=== PATIENT | female | born 1960 | race Caucasian/White ===

== ENCOUNTER 2021-04-06 23:23 | Inpatient (IN) | payer BC, SELFPAY ==
[~2021-04-06] VITALS: Ht 170.2 cm; Wt 81.6 kg
[2021-04-06 23:36] VITALS: BP 78/46
--- NOTE | 2021-04-06 23:36 | NUR ---
TO CHAIR B VIA [facility], BROUGHT IN BY AMBULANCE WITH C/O GEN WEAKNESS AND LOW BP
--- NOTE | 2021-04-06 23:47 | NUR ---
PT APPEARS TO BE RESTING W EYES CLOSED IN SUPINE POSITION. BED LOCKED IN LOWEST POSITION W X2 SIDERAILS UP FOR PT SAFEYT. PT CONNECTED TO MONITOR W VSS. BREATHING EVEN AND UNLABORED. NAD NOTED, WILL CONTINUE TO MONITOR.
--- NOTE | 2021-04-07 00:06 | NUR ---
Dr. Mcadams examining patient.
[2021-04-07] MEDS ORDERED: NACL 0.9% 1,000 ML IV ONE ×3 (00:40→04:10)
--- NOTE | 2021-04-07 00:59 | NUR ---
PT RETURN FROM RADIOLOGY
[2021-04-07 01:54] LABS: BASOPHILS % (AUTO) 0.1 % (0.0-2.0); EOSINOPHILS # (AUTO) 0.1 K/uL (0-0.4); EOSINOPHILS % (AUTO) 0.5 % (0.0-4.0); HEMATOCRIT 36.5 % (36-48); HEMOGLOBIN 11.8 g/dL (12.0-16.0); LYMPHOCYTES # (AUTO) 1.3 K/uL (2.5-16.5); MEAN CORPUSCULAR HEMOGLOBIN 27 pg (27-31); MEAN CORPUSCULAR HGB CONC 33 g/dL (33-37); MEAN CORPUSCULAR VOLUME 82.9 fL (80-94); MONOCYTES # (AUTO) 0.6 K/uL (0.8-1.0); MONOCYTES % (AUTO) 3.7 % (1.7-9.3); NEUTROPHILS # (AUTO) 14.8 K/uL (1.8-7.7); NEUTROPHILS % (AUTO) 87.7 % (42.2-75.2); PLATELET COUNT (AUTO) 305 K/uL (140-450); RED CELL DISTRIBUTION WIDTH 14.4 % (11.6-13.7); WHITE BLOOD COUNT (AUTO) 16.9 K/uL (4.8-10.8)
[2021-04-07 02:27] LABS: ALBUMIN 1.8 g/dL (3.4-5.0); ANION GAP 19.2 (8-16); CARBON DIOXIDE 19.8 mmol/L (21-32); THYROID STIMULATING HORMONE 0.91 uIU/mL (0.34-3.74); TOTAL BILIRUBIN 0.7 mg/dL (0.0-1.0)
[2021-04-07 02:35] LABS: CREATININE 6.3 mg/dL (0.6-1.3)
--- NOTE | 2021-04-07 03:40 | NUR ---
UA OBTAINED, SENT TO LAB
[2021-04-07 03:47] LABS: APPEARANCE,URINE CLOUDY (CLEAR); BILIRUBIN,URINE 1+ (NEGATIVE); BLOOD, URINE 1+ (NEGATIVE); COLOR,URINE YELLOW (YELLOW); LEUKOCYTE ESTERASE ,URINE 2+ (NEGATIVE); NITRITE, URINE NEGATIVE (NEGATIVE); PH,URINE 5.5 (5.0-9.0); UGLUCOSE TRACE (NEGATIVE)
--- NOTE | 2021-04-07 04:39 | NUR ---
Patient will be admitted to care of DR KAILA GONZALEZ. Admited to TELEMETRY. . Belongings list completed.
--- NOTE | 2021-04-07 04:40 | NUR ---
SWAB FOR VICKIE SENT TOL[facility]
[2021-04-07 04:48] LABS: RBC,URINE 0-5 /HPF (0-5); WBC,URINE TOO MANY TO COUNT /HPF (0-5)
--- NOTE | 2021-04-07 06:20 | NUR ---
PT MOVED TO ER BED 1
[2021-04-07] MEDS ORDERED: cefTRIAXone 1,000 MG VIAL ONE (06:45)
--- NOTE | 2021-04-07 07:30 | NUR ---
Received pt from Night nurse. Pt is bed, awake and using a cellphone. Pt stated that she feels better after received NS. Denies any pain. VSS.
[2021-04-07] MEDS ORDERED: MAGNESIUM OXIDE 400 MG TAB PO PRN (09:10)
[2021-04-07] MEDS ORDERED: ONDANSETRON 4 MG/2 ML VIAL IM/IVP PRN (09:10)
[2021-04-07] MEDS ORDERED: HYDROcodone/APAP 5/325 MG 1 TAB TAB PO PRN (09:10)
[2021-04-07] MEDS ORDERED: ACETAMINOPHEN 325 MG TAB PO PRN (09:10)
[2021-04-07] MEDS ORDERED: MORPHINE SULFATE 2 MG/ML SYR IVP PRN (09:10)
[2021-04-07] MEDS ORDERED: POTASSIUM CHLORIDE 10 MEQ TABER PO PRN (09:10)
[2021-04-07] MEDS ORDERED: SODIUM PHOS / POTASSIUM PHOS 1 PKT PDR PO PRN (09:10)
[2021-04-07] MEDS ORDERED: DOCUSATE SODIUM 100 MG GELCAP PO PRN (09:10)
--- NOTE | 2021-04-07 09:10 | NUR ---
Pt requeted to have breakfast. No diet order. Paged admitting for diet order.
[2021-04-07 10:22] LABS: MAGNESIUM 2.6 mg/dL (1.8-2.4)
[2021-04-07] MEDS: NACL 0.9% 1,000 ML IV SCH (12:27)
--- NOTE | 2021-04-07 13:15 | NUR ---
Lunch served. Pt stated that she wants to eat more but she cannot eat that much. 30 %
--- NOTE | 2021-04-07 14:34 | NUR ---
Asked Dr. Thomason whether pt needs 2 nd dose of Rocephine IVPB since last one given at 04 00 , Dr Thomason replied " NO ".
--- NOTE | 2021-04-07 15:51 | NUR ---
Pt is resting without distress and continues to sleep.
--- NOTE | 2021-04-07 16:30 | NUR ---
Assisted with prakash li
--- NOTE | 2021-04-07 16:53 | NUR ---
PATIENT HAS BEEN SCREENED AND CATEGORIZED MODERATE NUTRITION RISK. PATIENT WILL BE SEEN WITHIN 3-5 DAYS OF ADMISSION. / RADHA [address]PS RD
--- NOTE | 2021-04-07 19:27 | NUR ---
Report received from YIN Puckett for continuity of pt care at this time.
--- NOTE | 2021-04-07 19:46 | NUR ---
PT LAYING SUPINE IN BED W HOB ELEVATED. BED LOCKED IN LOWEST POTISION W X2 SIDERAIL UP FOR PT SAFETY. PT AWAKE REPORTS FEELING BETTER, PT DENIES ANY PAIN, DIZZYNESS OR OTHER SYMPTOMS AT THIS TIME. PT REPORTS ONGOING GEN WEAKNESS BUT IMPROVING FROM BEFORE. PT ALSO REPORTS BEING ABLE TO EAT SOME OF THE DINNER. PT HAS NS RUNNING AT 40 ML/HR TO L AC. PT REQUESTING SED COMPRESSION STOCKINGS D/T BEING IN BED FOR A LONG TIME, ADVISED PT ON DOING IN BED EXERCISES IN THE MEAN TIME. VSS. BREATHING EVEN AND UNLABORED. NAD NOTED, WILL CONTINUE TO MONITOR.
--- NOTE | 2021-04-07 20:02 | NUR ---
CONTACTED [employer]ON FORMING MACHINE ADJUSTER GABRIEL FOR SED COMPRESSION STOCKINGS AT THIS TIME.
--- NOTE | 2021-04-08 00:02 | NUR ---
PT ASSISTED TO BED TIRADO, PROVIDED W CLEAN LINENS AND PLACED IN GOWN. ALL NEEDS MET AT THIS TIME.
--- NOTE | 2021-04-08 00:11 | NUR ---
SEQUENTIAL COMPRESSION STOCKINGS APPLIED.
--- NOTE | 2021-04-08 00:32 | NUR ---
PT BP TRENDING AROUND 73/33 W OTHER VSS. PT REPORTS SHE FEELS FINE DENIES ANY PAIN, DIZZYNESS, NAUSEA OR OTHER SYMPTOMS. PT IN BED CONNECTED TO MONITOR. MADE AWARE.
--- NOTE | 2021-04-08 00:38 | NUR ---
Yazmin meléndez in ED - 04/08/21 at 0038 by TYLER NEW ORDERS RECEIVED FOR NS BOLUS OF 500ML.
--- NOTE | 2021-04-08 00:38 | NUR ---
NEW ORDERS RECEIVED FOR NS BOLUS OF 500ML. PER .
[2021-04-08] MEDS ORDERED: NACL 0.9% 500 ML IV SCH (00:40)
--- NOTE | 2021-04-08 02:03 | NUR ---
PT BP AT 85/56. MD BRIGHT MADE AWARE. PT DENIES ANY SYMPTOMS AT THIS TIME.
--- NOTE | 2021-04-08 02:06 | NUR ---
NEW ORDER FROM MD BRIGHT FOR 1L BOLUS RECIVED.
[2021-04-08] MEDS ORDERED: cefTRIAXone 1,000 MG VIAL ONE (02:40)
[2021-04-08] MEDS ORDERED: NACL 0.9% 1,000 ML IV SCH (02:50)
--- NOTE | 2021-04-08 03:08 | NUR ---
Pt report given to ROSAURA CORDOBA. Transfer of care at this time.
--- NOTE | 2021-04-08 03:42 | NUR ---
PT GIVEN BEDPAN. 500 ML OUPUT
--- NOTE | 2021-04-08 05:00 | NUR ---
pt asked to home health caregiver her mints in her bag.
[2021-04-08] MEDS: PANTOPRAZOLE 40 MG TABEC PO SCH ×2 (05:09→09:40)
[2021-04-08] MEDS: NACL 0.9% 1,000 ML IV SCH ×2 (05:12→15:58)
--- NOTE | 2021-04-08 07:45 | NUR ---
Pt is AOX4, able to make all needs known. Resp even and unlabored on RA. Denies pain at this time. Bedpan given with 300cc of clear yellow urine obtained at this time. PT is Afib controlled at the monitor. VSS. Assisted to reposition and all safety measures in place . SR up for safety. Call light in reach.
[2021-04-08 09:13] LABS: HEMATOCRIT 35.8 % (36-48); HEMOGLOBIN 11.8 g/dL (12.0-16.0); MEAN CORPUSCULAR HEMOGLOBIN 27 pg (27-31); MEAN CORPUSCULAR HGB CONC 33 g/dL (33-37); MEAN CORPUSCULAR VOLUME 83.2 fL (80-94); PLATELET COUNT (AUTO) 313 K/uL (140-450); RED BLOOD CELL COUNT(AUTO) 4.31 MIL/uL (4.20-5.40); RED CELL DISTRIBUTION WIDTH 14.3 % (11.6-13.7); WHITE BLOOD COUNT (AUTO) 14.3 K/uL (4.8-10.8)
[2021-04-08 09:44] LABS: ANION GAP 19.1 (8-16); CARBON DIOXIDE 17.7 mmol/L (21-32); POTASSIUM 3.8 mmol/L (3.5-5.1)
[2021-04-08 09:46] LABS: CREATININE 5.6 mg/dL (0.6-1.3)
[2021-04-08 10:00] LABS: EOSINOPHILS % (MANUAL) 2 % (0-4); LYMPHOCYTES % (MANUAL) 5 % (20-46); MONOCYTES % (MANUAL) 3 % (5-12)
--- NOTE | 2021-04-08 10:11 | NUR ---
Pt is sleeping comfortably in bed at this time. VSS
--- NOTE | 2021-04-08 11:56 | NUR ---
Pt noted with B/P 64/28, asymptomatic at this time. Dr Kemp made aware, new orders to be put in.
--- NOTE | 2021-04-08 12:12 | NUR ---
US at bedside to perform procedure.
--- NOTE | 2021-04-08 13:20 | NUR ---
Dr Kemp at bedside to assess pt. Pt given full opportunity to ask all questions at this time.
[2021-04-08] MEDS: NOREPINEPHRINE 4 MG in DEXTROSE 5% 250 ML IV PRN ×2 (13:26→21:35)
--- NOTE | 2021-04-08 14:00 | NUR ---
Dr Mobley at bedside to consul with patient
--- NOTE | 2021-04-08 16:39 | NUR ---
Patient is sleeping comfortably in bed. Vital Signs within normal limits. Respirations even and unlabored. Call light in reach. IV remains patent and intact.
--- NOTE | 2021-04-08 17:58 | NUR ---
Pt assisted to use bedpan at this time. 300 cc clear yellow fluid obtained.
--- NOTE | 2021-04-08 19:32 | NUR ---
Pt report given to Ermias ESQUEDA. Transfer of care at this time.
--- NOTE | 2021-04-08 21:25 | NUR ---
PATIENT STABLE VITALS SIGNS IN NORMAL LIMITS BP 99/57 R 18 T97.8 R 18 SPO2 99 PATIENT DENIES ANY PAIN STAY IF I NEED THE BED TIRADO I BALDEMAR PRESS THE CALLBOTHOM //Maikel RN
[2021-04-08] MEDS ORDERED: NOREPINEPHRINE 4 MG/4 ML VIAL IV ONE (21:33)
[2021-04-09] MEDS: NACL 0.9% 1,000 ML IV SCH ×3 (01:11→21:26)
[2021-04-09] MEDS ORDERED: cefTRIAXone 1,000 MG VIAL ONE (01:14)
--- NOTE | 2021-04-09 01:50 | NUR ---
PATIENT STABLE VITALS SIGNS IN NORMAL LIMITS SR ON MONITOR 86 NO COMPLAINING OG PAIN //DiCaprio RN
--- NOTE | 2021-04-09 03:08 | NUR ---
PATIENT SLEEPING AT THIS TIME VITALS SIGNS IN NORMAL LIMITS SR 86 ON MONITOR //DiCaprio RN
--- NOTE | 2021-04-09 05:22 | NUR ---
Note rika in EDM - 04/09/21 at 0536 by COCO Patient discharged with v/s stable. Written and verbal after care instructions given and explained. Patient alert, oriented and verbalized understanding of instructions. Ambulatory with steady gait. All questions addressed prior to discharge. ID band removed. Patient advised to follow up with PMD. Rx of KEFLEX. DIFLUCAN, BACTRIM, IBRUPROFEN given.Opportunity to ask questions provided and answered.
--- NOTE | 2021-04-09 05:38 | NUR ---
PATIENT STABLE AWAKED RUDI IN HER COMPUTER VITALS SIGNS IN NORMAL LIMITS SR 83 ON THE MONITOR ASKED FOR AN APPLE JUICE //DiCaprio RN
--- NOTE | 2021-04-09 06:52 | NUR ---
PATIENT STABLE VITALS SIGNS IN NORMAL LIMITS NOT COMPLAINING OF PAIN SR 86 ON MONITOR //DiCaprio RN
--- NOTE | 2021-04-09 07:31 | NUR ---
Report and continuation of care received from YIN Pink.
--- NOTE | 2021-04-09 07:35 | NUR ---
Received patient on Levophed @ 2mcg/min, NS @ 100 mL/clear to L wrist. BP 93/57 (70) HR 82, 98% on room air; RR 23. library monitor in place. Bed locked in lowest position, side rails x 1, call light in reach.
--- NOTE | 2021-04-09 07:45 | NUR ---
Arie (PICC line RN) spoke and states to contact n ephrologist to get cleared for PICC.
--- NOTE | 2021-04-09 07:53 | NUR ---
Spoke with Dr. Ahn who states pt cleared for PICC line.
--- NOTE | 2021-04-09 07:58 | NUR ---
Patient assisted with bedpan; 120mL clear/yellow urine discarded and new chucks applied. All pt needs met.
--- NOTE | 2021-04-09 08:05 | NUR ---
Patient states she wants to speak with family prior to making decision on PICC line insertion.
--- NOTE | 2021-04-09 08:10 | NUR ---
Breakfast mealtray at bedside
[2021-04-09 08:12] LABS: BASOPHILS % (AUTO) 0.1 % (0.0-2.0); EOSINOPHILS # (AUTO) 0.2 K/uL (0-0.4); EOSINOPHILS % (AUTO) 1.9 % (0.0-4.0); HEMATOCRIT 34.5 % (36-48); HEMOGLOBIN 11.5 g/dL (12.0-16.0); LYMPHOCYTES # (AUTO) 0.6 K/uL (2.5-16.5); LYMPHOCYTES % (AUTO) 4.3 % (20.5-51.1); MEAN CORPUSCULAR HEMOGLOBIN 28 pg (27-31); MEAN CORPUSCULAR HGB CONC 33 g/dL (33-37); MEAN CORPUSCULAR VOLUME 83.2 fL (80-94); MONOCYTES # (AUTO) 0.3 K/uL (0.8-1.0); MONOCYTES % (AUTO) 2.2 % (1.7-9.3); NEUTROPHILS # (AUTO) 12.1 K/uL (1.8-7.7); NEUTROPHILS % (AUTO) 91.5 % (42.2-75.2); PLATELET COUNT (AUTO) 344 K/uL (140-450); RED BLOOD CELL COUNT(AUTO) 4.14 MIL/uL (4.20-5.40); RED CELL DISTRIBUTION WIDTH 14.4 % (11.6-13.7); WHITE BLOOD COUNT (AUTO) 13.2 K/uL (4.8-10.8)
[2021-04-09 08:14] LABS: ANION GAP 18.6 (8-16); POTASSIUM 3.6 mmol/L (3.5-5.1)
[2021-04-09 08:24] LABS: CREATININE 4.4 mg/dL (0.6-1.3)
--- NOTE | 2021-04-09 08:25 | NUR ---
Arie (PICC line RN) contacted; left voicemail of status update regarding doctor clearance and patient possibly AMA.
[2021-04-09] MEDS: PANTOPRAZOLE 40 MG TABEC PO SCH (09:35)
--- NOTE | 2021-04-09 09:35 | NUR ---
Answered call light; patient states she spoke with family and is requesting to sign out AMA at this time. Patient requesting copy of complete work-up. Charge nurse made aware.
[2021-04-09] MEDS: ECOTRIN 81 MG TABEC PO SCH (09:42)
--- NOTE | 2021-04-09 10:08 | NUR ---
Dr. Kemp made aware of patient request. States he will make rounds this afternoon.
--- NOTE | 2021-04-09 11:01 | NUR ---
Patient made aware of status and states "I am in no chan." All pt needs met. Bed locked in lowest position, side rails x 1, call light in reach.
--- NOTE | 2021-04-09 11:15 | NUR ---
Patient assisted with bedpan placement. 200mL clear/yellow urine removed; discarded.
--- NOTE | 2021-04-09 13:15 | NUR ---
Dr. Guido is evaluating pt at bedside
--- NOTE | 2021-04-09 13:45 | NUR ---
Lunch mealtray at bedside. Pt completing meal at this time.
--- NOTE | 2021-04-09 14:09 | NUR ---
400mL clear/yellow urine removed from bedpan. Urine discarded. All pt needs met.
--- NOTE | 2021-04-09 16:05 | NUR ---
Dr. Kemp is evaluating patient at bedside.
--- NOTE | 2021-04-09 16:10 | NUR ---
PICC line consent form signed by pt.
--- NOTE | 2021-04-09 16:20 | NUR ---
Patient sitting upright in position of comfort. groundwater monitoring technician in place. Levophed remains at 2mcg/min. IVF continued. Bed locked in lowest position, side rails x 2.
--- NOTE | 2021-04-09 18:25 | NUR ---
Dinner mealtray at bedside. Pt sitting upright completing meal at this time.
--- NOTE | 2021-04-09 19:05 | NUR ---
Report and transfer of care endorsed to YIN Pink.
[2021-04-10] MEDS ORDERED: NOREPINEPHRINE 4 MG/4 ML VIAL IV ONE (00:20)
[2021-04-10] MEDS: NOREPINEPHRINE 4 MG in DEXTROSE 5% 250 ML IV PRN (00:24)
[2021-04-10] MEDS ORDERED: cefTRIAXone 1,000 MG VIAL ONE (01:43)
--- NOTE | 2021-04-10 02:06 | NUR ---
PATIENT ALERT ORIENTED NO COMPLAINING OF PATIENT WORKING IN HER COMPUTER NOW .Vitals signs in normal limits //DiCaprio RN
--- NOTE | 2021-04-10 05:00 | NUR ---
PATIENT SLEEPING AT THIS TIME VITALS SIGNS IN NORMAL LIMITS SR ON MONITOR //DiCaprio RN
[2021-04-10] MEDS: NACL 0.9% 1,000 ML IV SCH ×2 (06:56→17:04)
[2021-04-10] MEDS: MIDODRINE 5 MG TAB PO SCH ×3 (06:59→20:52)
[2021-04-10 07:14] LABS: BASOPHILS % (AUTO) 0.1 % (0.0-2.0); EOSINOPHILS # (AUTO) 0.3 K/uL (0-0.4); EOSINOPHILS % (AUTO) 2.4 % (0.0-4.0); HEMATOCRIT 32.1 % (36-48); HEMOGLOBIN 10.5 g/dL (12.0-16.0); LYMPHOCYTES # (AUTO) 0.9 K/uL (2.5-16.5); MEAN CORPUSCULAR HEMOGLOBIN 27 pg (27-31); MEAN CORPUSCULAR HGB CONC 33 g/dL (33-37); MEAN CORPUSCULAR VOLUME 82.9 fL (80-94); MONOCYTES # (AUTO) 0.3 K/uL (0.8-1.0); MONOCYTES % (AUTO) 2.6 % (1.7-9.3); NEUTROPHILS # (AUTO) 9.6 K/uL (1.8-7.7); PLATELET COUNT (AUTO) 355 K/uL (140-450); RED BLOOD CELL COUNT(AUTO) 3.87 MIL/uL (4.20-5.40); RED CELL DISTRIBUTION WIDTH 14.5 % (11.6-13.7); WHITE BLOOD COUNT (AUTO) 11.1 K/uL (4.8-10.8)
--- NOTE | 2021-04-10 07:20 | NUR ---
Report and continuation of care received from YIN Pink.
--- NOTE | 2021-04-10 07:45 | NUR ---
Patient assisted with bedpan. 200mL urine removed. Warm blankets provided per request. heel padder remains in place. Levophed @ 2 mcg/min; NS @ 100mL. Pt denies pain at this time. Bed locked in lowest position, side rails x 2, call light in reach.
[2021-04-10 07:55] LABS: ANION GAP 15.6 (8-16); CARBON DIOXIDE 19.2 mmol/L (21-32); CREATININE 2.9 mg/dL (0.6-1.3); POTASSIUM 3.8 mmol/L (3.5-5.1)
[2021-04-10 07:58] LABS: LYMPHOCYTES % (AUTO) 7.7 % (20.5-51.1); NEUTROPHILS % (AUTO) 87.2 % (42.2-75.2)
[2021-04-10] MEDS: ECOTRIN 81 MG TABEC PO SCH (09:36)
--- NOTE | 2021-04-10 10:39 | NUR ---
Patient assisted with angelia care; new chucks applied. Bedpan for void 255mL clear/yellow urine removed. Hygiene products and Z-guard provided per request. All pt needs met at this time. Bed locked in lowest position, side rails x 2, call light in reach.
[2021-04-10] MEDS ORDERED: Z-GUARD PASTE TP ONE (10:50)
--- NOTE | 2021-04-10 11:20 | NUR ---
Levophed titrated from 2mcg/min to 1mcg/min.
--- NOTE | 2021-04-10 11:35 | NUR ---
Dr. Jones is evaluating patient at bedside
--- NOTE | 2021-04-10 11:38 | NUR ---
Verbal order received from Dr. Jones to increase NS 120mL/hr.
--- NOTE | 2021-04-10 12:50 | NUR ---
Pt assisted with bedpan; 250mL clear/yellow urine removed.
--- NOTE | 2021-04-10 13:01 | NUR ---
Patient resting with both eyes closed in high-fowlers. Lunch mealtray at bedside. Pt awaken, completing meal at this time.
--- NOTE | 2021-04-10 13:05 | NUR ---
Levophed paused from 1mcg/min at this time. Pt made aware to utilize call light for any acute onset symptoms. All pt needs met.
--- NOTE | 2021-04-10 14:30 | NUR ---
Patient resting in semi-fowlers position. office machine servicer and NS @ 120mL. Bed locked in lowest position, side rails x 2, call light in reach.
--- NOTE | 2021-04-10 17:04 | NUR ---
Paged Dr. Jones regarding titration off Levophed and MAP >65 since 1300. Requested for Telemetry downgrade; Dr. Jones states OK to downgrade at 1800 if patient remains stable.
--- NOTE | 2021-04-10 19:18 | NUR ---
Report and transfer of care endorsed to YIN Turner.
--- NOTE | 2021-04-10 19:18 | NUR ---
PT REPORT RECEIVED FROM YIN MCCLELLAND FOR CONTINUITY OF PT CARE AT THIS TIME.
--- NOTE | 2021-04-10 20:35 | NUR ---
PT LAYING IN BED SUPINE POSITION. BED LOCKED INLOWEST POSITION W X1 SIDERAIL UP. PT DENIES ANY PAIN, WEAKNESS OR OTHER SYMPTOMS AT THIS TIME. PT ASSISTED TO BED TIRADO USE. PT VOIDED APPROX 200CC CLEAR YELLOW URINE. PT CONNECTED TO MONITOR W VSS. ALL NEEDS MET AT THIS TIME. BREATHING EVEN AND UNLABORED. NAD NOTED, WILL CONTINUE TO MONITOR.
--- NOTE | 2021-04-10 21:41 | NUR ---
PLACED SED COMPRESSION STOCKINF ON PT PER REQUEST . ALL NEEDS MET.
--- NOTE | 2021-04-11 00:41 | NUR ---
PT SITTING IN BED EATING FOOD. PT DENIES PAIN, DIZZINESS, NAUSEA OR OTHER SYMPTOMS. ALL NEEDS MET. VSS.
[2021-04-11] MEDS ORDERED: cefTRIAXone 1,000 MG VIAL ONE (01:35)
[2021-04-11] MEDS: NACL 0.9% 1,000 ML IV SCH ×3 (03:29→23:23)
--- NOTE | 2021-04-11 03:31 | NUR ---
PT SITTING ON BED WATCHING VIDOES ON LAPTOP. NO C/O SYMPTOMS. PT REPORTS FEELING MUCH BETTER. VSS. NAD NOTED, WILL CONTINUE TO MONITOR.
--- NOTE | 2021-04-11 06:21 | NUR ---
PT PROVIDED W CRACKERS. ALL NEEDS MET AT THIS TIME. VSS.
[2021-04-11] MEDS: MIDODRINE 5 MG TAB PO SCH ×3 (07:05→19:56)
--- NOTE | 2021-04-11 07:08 | NUR ---
PT PROVIDED W EXTRA BLANKETS.
--- NOTE | 2021-04-11 07:16 | NUR ---
Pt report given to YIN CORTEZ. Transfer of care at this time.
--- NOTE | 2021-04-11 07:30 | NUR ---
RECEIVED PT IN [facility] AOX4. DENIES PAIN OR DISCOMFORT. IV INTACT AND PATENT. BREATHING UNLABORED. VSS. NAD. SAFETY MAINTAINED.
[2021-04-11] MEDS: PANTOPRAZOLE 40 MG TABEC PO SCH (08:48)
[2021-04-11] MEDS: ECOTRIN 81 MG TABEC PO SCH (08:48)
[2021-04-11 08:56] LABS: BASOPHILS % (AUTO) 0.4 % (0.0-2.0); EOSINOPHILS # (AUTO) 0.3 K/uL (0-0.4); EOSINOPHILS % (AUTO) 3.2 % (0.0-4.0); HEMATOCRIT 30.7 % (36-48); HEMOGLOBIN 10.2 g/dL (12.0-16.0); LYMPHOCYTES # (AUTO) 0.7 K/uL (2.5-16.5); LYMPHOCYTES % (AUTO) 8.3 % (20.5-51.1); MEAN CORPUSCULAR HEMOGLOBIN 28 pg (27-31); MEAN CORPUSCULAR HGB CONC 33 g/dL (33-37); MONOCYTES # (AUTO) 0.2 K/uL (0.8-1.0); MONOCYTES % (AUTO) 2.1 % (1.7-9.3); NEUTROPHILS # (AUTO) 7.6 K/uL (1.8-7.7); PLATELET COUNT (AUTO) 366 K/uL (140-450); RED CELL DISTRIBUTION WIDTH 14.9 % (11.6-13.7); WHITE BLOOD COUNT (AUTO) 8.9 K/uL (4.8-10.8)
[2021-04-11 09:15] LABS: ANION GAP 15.1 (8-16); CARBON DIOXIDE 19.4 mmol/L (21-32); CREATININE 1.8 mg/dL (0.6-1.3); POTASSIUM 3.5 mmol/L (3.5-5.1)
--- NOTE | 2021-04-11 10:30 | NUR ---
pt seen by PT and cleared. pt ambulates steady without assistance.
--- NOTE | 2021-04-11 14:56 | NUR ---
04/11/21 RD INITIAL ASSESSMENT COMPLETED PLEASE REFER TO NUTRITION ASSESSMENT UNDER CARE ACTIVITY FOR ESTIMATED NUTRITIONAL NEEDS. 1. CONTINUE RENAL DIET TOLERATED 2. MONITOR NUTRITION-RELATED LABS 3. RD TO FOLLOW-UP 3-5 DAYS, MODERATE RISK RADHA CAPPS RD
--- NOTE | 2021-04-11 15:00 | NUR ---
PT RESTING IN GURNEY NO CHANGES NOTED. DENIES PAIN OR DISCOMFORT. SAFETY MAINTAINED.
--- NOTE | 2021-04-11 19:21 | NUR ---
REPORT RECEIVED FROM YIN PENA FOR CONTINUITY OF PT CARE AT THIS TIME.
--- NOTE | 2021-04-11 19:51 | NUR ---
PT LAYING IN BED LOCKED IN LOWEST POSITION W X1 SIDERAIL UP. PT DENIES ANY PAIN, SOB, OR OTHER SYMPTOMS. PT CONNECTED TO MONITOR W VSS. SPOKE WITH PATIENT ABOUT MOVING TO TELE FLOOR, PER PT DOES NOT WANT TO MOVE AND WANTS TO STAY IN ER. CHARGE NURSE AND HOUSE SUP MADE AWARE. ALL NEEDS MET. BREATHING EVEN AND UNLABORED. NAD NOTED, WILL CONTINUE TO MONITOR.
--- NOTE | 2021-04-11 22:13 | NUR ---
PT MISSING LUNCH TRAY. HOUSE SUP CONTACTED FOR NEW LUNCH TRAY.
--- NOTE | 2021-04-11 23:11 | NUR ---
NO CHANGE IN PT STATUS. VSS.
--- NOTE | 2021-04-12 00:15 | NUR ---
PT APPEARS TO BE RESTING W EYES CLOSED. VSS ON MONITOR. BREATHING EVEN AND UNLABORED.
[2021-04-12] MEDS ORDERED: cefTRIAXone 1,000 MG VIAL ONE (01:44)
--- NOTE | 2021-04-12 02:32 | NUR ---
EMPTIED PT BED PANS X2, CLEAR YELLOW URINE 400CC. PROVIDED PT W JUICE AND SANDWICH. ALL NEEDS MET. VSS.
--- NOTE | 2021-04-12 03:40 | NUR ---
ASSISTED PT W BEDPAN USE. ALL NEEDS MET VSS.
[2021-04-12 07:13] LABS: BASOPHILS % (AUTO) 0.4 % (0.0-2.0); EOSINOPHILS # (AUTO) 0.2 K/uL (0-0.4); EOSINOPHILS % (AUTO) 2.9 % (0.0-4.0); HEMATOCRIT 28.8 % (36-48); HEMOGLOBIN 9.5 g/dL (12.0-16.0); LYMPHOCYTES # (AUTO) 0.7 K/uL (2.5-16.5); LYMPHOCYTES % (AUTO) 9.3 % (20.5-51.1); MEAN CORPUSCULAR HEMOGLOBIN 28 pg (27-31); MEAN CORPUSCULAR HGB CONC 33 g/dL (33-37); MEAN CORPUSCULAR VOLUME 83.7 fL (80-94); MONOCYTES # (AUTO) 0.3 K/uL (0.8-1.0); MONOCYTES % (AUTO) 3.5 % (1.7-9.3); NEUTROPHILS # (AUTO) 6.6 K/uL (1.8-7.7); NEUTROPHILS % (AUTO) 83.9 % (42.2-75.2); PLATELET COUNT (AUTO) 388 K/uL (140-450); RED BLOOD CELL COUNT(AUTO) 3.44 MIL/uL (4.20-5.40); RED CELL DISTRIBUTION WIDTH 14.8 % (11.6-13.7); WHITE BLOOD COUNT (AUTO) 7.9 K/uL (4.8-10.8)
[2021-04-12] MEDS: MIDODRINE 5 MG TAB PO SCH (07:26)
--- NOTE | 2021-04-12 07:32 | NUR ---
Pt report given to YIN MÉNDEZ. Transfer of care at this time.
--- NOTE | 2021-04-12 07:33 | NUR ---
RECEIVED REPORT FROM YIN KRAMER. TRANSFER OF CARE AT THIS TIME.
[2021-04-12 07:52] LABS: CREATININE 1.4 mg/dL (0.6-1.3); POTASSIUM 3.9 mmol/L (3.5-5.1)
[2021-04-12 08:04] LABS: ANION GAP 14.3 (8-16); CARBON DIOXIDE 21.6 mmol/L (21-32)
--- NOTE | 2021-04-12 08:30 | NUR ---
PT RESTING IN BED, PROVIDED PT WITH BREAKFAST TRAY, VSS, WILL CONTINUE TO MONITOR.
[2021-04-12] MEDS: NACL 0.9% 1,000 ML IV SCH (08:54)
[2021-04-12] MEDS: PANTOPRAZOLE 40 MG TABEC PO SCH (09:53)
[2021-04-12] MEDS: ECOTRIN 81 MG TABEC PO SCH (09:53)
[2021-04-12] MEDS ORDERED: DOCU-299 PO (11:07)
[2021-04-12] MEDS ORDERED: PANT40EC56 PO (11:07)
[2021-04-12] MEDS ORDERED: ASPI-1856 PO (11:07)
[2021-04-12 11:11] VITALS: BP 129/76
--- NOTE | 2021-04-12 12:23 | NUR ---
PT PROVIDED WITH LUNCH TRAY BEDSIDE
--- NOTE | 2021-04-12 13:03 | NUR ---
Patient discharged with v/s stable. Written and verbal after care instructions given and explained. Patient verbalized understanding. Ambulatory with steady gait. All questions addressed prior to discharge. Advised to follow up with PMD.
== END 2021-04-12 13:03 | disposition home or self-care (01) | DRG 871 ==
LOC: MED 23:23 → MTU 04-07 04:39
PROVIDERS: ADMIT Hospitalist; ATTEND Hospitalist
DX: A41.9 Sepsis, unspecified organism (principal); N17.0 Acute kidney failure with tubular necrosis; R65.21 Severe sepsis with septic shock; E43 Unspecified severe protein-calorie malnutrition; E87.1 Hypo-osmolality and hyponatremia; E87.2 Acidosis; N30.00 Acute cystitis without hematuria; I10 Essential (primary) hypertension; F32.9 Major depressive disorder, single episode, unspecified; F41.9 Anxiety disorder, unspecified; G90.8 Other disorders of autonomic nervous system; I48.0 Paroxysmal atrial fibrillation; E86.0 Dehydration; E83.39 Other disorders of phosphorus metabolism; E83.41 Hypermagnesemia; R74.01 Elevation of levels of liver transaminase levels; I48.91 Unspecified atrial fibrillation; E87.8 Other disorders of electrolyte and fluid balance, not elsewhere classified; Z20.822 Contact with and (suspected) exposure to COVID-19; I36.1 Nonrheumatic tricuspid (valve) insufficiency; I34.0 Nonrheumatic mitral (valve) insufficiency; I95.1 Orthostatic hypotension; Z79.01 Long term (current) use of anticoagulants; Z68.28 Body mass index [BMI] 28.0-28.9, adult
CPT/HCPCS: 36415; 70450; 71045; 76770; 80048; 80053; 81001; 82140; 82550; 83605; 83735; 84100; 84443; 84484; 85025; 87040; 87086; 93005; 93880; 96361; 96365; 97110; 97116; 97163-GP; 97530; 99285; J0696; J1644; J3490; J7030; J7060; Q0092